=== PATIENT | male | born 1940 | race Caucasian/White ===

== ENCOUNTER 2022-09-02 10:00 | Inpatient (IN) | payer MEDICARE, BC ==
[~2022-09-02] VITALS: Ht 195.6 cm; Wt 127.0 kg
--- NOTE | 2022-09-02 10:24 | NUR ---
COVID SWAB COLLECTED AND SENT TO LAB
--- NOTE | 2022-09-02 10:45 | NUR ---
MOVE SHEET SUBMITTED.
--- NOTE | 2022-09-02 11:00 | NUR ---
PT IN BED A/O X4 ON NON REBREATHER 15L SATTING IN THE 92% RR 26. AUSCULTATION OF LUNG SOUNDS REVEALS RALES BILATERALLY, FEET ARE EDEMATOUS +3. CONNECTED TO BEDISDE MONITOR BP AND HR WNL. SIDE RAILS UP BED LOCKED IN LOWEST POSTION.
[2022-09-02] MEDS ORDERED: TAMS-12 PO (11:16)
[2022-09-02] MEDS ORDERED: METO5TAB7 PO (11:16)
[2022-09-02] MEDS ORDERED: CARV25TA2 PO (11:16)
[2022-09-02] MEDS ORDERED: LOSA50TA39 PO (11:16)
[2022-09-02] MEDS ORDERED: APIX2.5T PO (11:16)
[2022-09-02] MEDS ORDERED: DIGO125T PO (11:16)
[2022-09-02] MEDS ORDERED: EMPA10TA PO (11:16)
[2022-09-02] MEDS ORDERED: AMLO2.5T4 PO (11:16)
[2022-09-02] MEDS ORDERED: LINA5TAB PO (11:16)
[2022-09-02] MEDS ORDERED: PRAV20TA4 PO (11:16)
[2022-09-02] MEDS ORDERED: ALLO100T PO (11:16)
[2022-09-02] MEDS ORDERED: POTA-58 PO (11:16)
[2022-09-02] MEDS ORDERED: FAMO20TA8 PO (11:16)
[2022-09-02] MEDS ORDERED: FERR325T24 PO (11:16)
[2022-09-02] MEDS ORDERED: VENL37.591 PO (11:16)
[2022-09-02 11:34] LABS: BASOPHILS # (AUTO) 0.1 K/uL (0.0-0.2); EOSINOPHILS % (AUTO) 4.7 % (0.0-6.0); HEMATOCRIT 38 % (39-51); LYMPHOCYTES # (AUTO) 0.9 K/uL (0.8-4.8); LYMPHOCYTES % (AUTO) 13.8 % (20.0-44.0); MEAN CORPUSCULAR HGB CONC 32 g/dl (31.0-36.0); MEAN CORPUSCULAR VOLUME 90 fL (80-96); MONOCYTES # (AUTO) 0.9 K/uL (0.1-1.30); MONOCYTES % (AUTO) 13.5 % (2.0-12.0); NEUTROPHILS # (AUTO) 4.5 K/uL (1.8-8.9); PLATELET COUNT (AUTO) 201 K/uL (150-450); RED BLOOD CELL COUNT(AUTO) 4.15 MIL/uL (4.5-6.0); WHITE BLOOD COUNT (AUTO) 6.6 K/uL (4.3-11.0)
[2022-09-02] MEDS ORDERED: SENN-18 PO (11:40)
[2022-09-02] MEDS ORDERED: TEST75AU SQ (11:40)
[2022-09-02] MEDS ORDERED: ASPI-1169 PO (11:40)
[2022-09-02] MEDS ORDERED: BUME2TAB7 PO (11:40)
[2022-09-02] MEDS ORDERED: ASCO-352 PO (11:40)
[2022-09-02] MEDS ORDERED: MULT-24 PO (11:40)
[2022-09-02] MEDS ORDERED: CHOL100043 PO (11:40)
[2022-09-02] MEDS ORDERED: ZINC1CAP3 PO (11:40)
[2022-09-02 11:58] LABS: CALCIUM, SERUM 9.1 mg/dL (8.5-10.1); CARBON DIOXIDE 37 mmol/L (21-32); CHLORIDE 99 mmol/L (98-107); CREATININE 2.4 mg/dL (0.6-1.3); GLUCOSE 120 mg/dL (74-106); POTASSIUM 4.4 mmol/L (3.5-5.1); SODIUM SERUM 139 mmol/L (136-145); UREA NITROGEN, BLOOD 32 mg/dL (7-18)
[2022-09-02 12:10] LABS: ALANINE AMINOTRANSFERASE 11 U/L (12-78); ALBUMIN 2.6 g/dL (3.4-5.0); ALKALINE PHOSPHATASE 126 U/L (46-116); ASPARTATE AMINOTRANSFERASE 52 U/L (15-37); BILIRUBIN,DIRECT 0.2 mg/dL (0.0-0.2); BILIRUBIN,TOTAL 1.2 mg/dL (0.2-1.0); TOTAL PROTEIN, SERUM 8.4 g/dL (6.4-8.2)
[2022-09-02] MEDS ORDERED: FUROSEMIDE 40 MG/4 ML VIAL IV ONE (13:00)
[2022-09-02] MEDS ORDERED: FUROSEMIDE 40 MG/4 ML VIAL ONE (13:24)
--- NOTE | 2022-09-02 14:09 | NUR ---
PT TRANSITIONED TO SIMPLE MASK 10L POST LASIX ADMIN
--- NOTE | 2022-09-02 15:04 | NUR ---
URINE COLLECTED AND SENT TO LAB
--- NOTE | 2022-09-02 15:22 | NUR ---
CLIN APPLICATION SPECIALIST AT BEDSIDE FOR EVAL
[2022-09-02] MEDS ORDERED: Z GUARD REMEDY 4 OZ OINT TP PRN (15:30)
[2022-09-02] MEDS ORDERED: MAGNESIUM HYDROXIDE 30 ML UDC PO PRN (15:30)
[2022-09-02] MEDS ORDERED: ONDANSETRON HCL/PF 4 MG/2 ML VIAL IVP PRN (15:30)
[2022-09-02] MEDS ORDERED: MAG HYDROX/AL HYDROX/SIMETH 30 ML UDC PO PRN (15:30)
[2022-09-02] MEDS ORDERED: IPRATROPIUM NEB FS 0.5 MG/2.5 ML AMPUL.NEB NEB PRN (15:30)
[2022-09-02] MEDS ORDERED: ZOLPIDEM TARTRATE 5 MG TABLET PO PRN (15:30)
[2022-09-02] MEDS ORDERED: ALBUTEROL FS 2.5 MG/0.5 ML VIAL.NEB NEB PRN (15:30)
[2022-09-02] MEDS ORDERED: ACETAMINOPHEN 325 MG TABLET PO PRN (15:30)
[2022-09-02 15:39] LABS: BILIRUBIN,URINE NEGATIVE (NEGATIVE); COLOR,URINE YELLOW (YELLOW); LEUKOCYTE ESTERASE ,URINE NEGATIVE (NEGATIVE); NITRITE, URINE NEGATIVE (NEGATIVE); PH,URINE 5.5 (5.0-8.0); PROTEIN,URINE NEGATIVE (NEGATIVE); UGLUCOSE TRACE mg/dL (NEGATIVE); UROBILINOGEN,URINE 0.2 EU/dL (0.2)
[2022-09-02] MEDS ORDERED: DEXTROSE 50%-WATER 50 ML DISP.SYRIN IV PRN (16:00)
[2022-09-02] MEDS ORDERED: INSULIN REGULAR, HUMAN 100 UNIT/ML 3 ML VIAL SQ PRN (16:00)
--- NOTE | 2022-09-02 16:07 | NUR ---
hand off report given to Kisha
[2022-09-02 16:14] LABS: BACTERIA,URINE N0 /HPF (None Seen); RBC,URINE 0-2 /HPF (0-2); WBC,URINE 0-2 /HPF (0-3)
[2022-09-02 16:15] LABS: SQUAMOUS EPITHELIAL CELL,UR 0-2 /HPF (None Seen)
--- NOTE | 2022-09-02 16:24 | NUR ---
PT TRANSFERED W/ ACLS PROTOCALL. VITALS WERE STABLE THE WHOLE TIME.
[2022-09-02 16:30] VITALS: BP 89/46
--- NOTE | 2022-09-02 16:30 | NUR ---
FIELD EDUCATION DIRECTOR NOTE: PATIENT CAME FROM ER VIA STRETCHER. ALERT AND ORIENTED X4. ON 02 5LPM NC SATING AT 100%. NATURAL RESOURCES TECHNICIAN CONTROLLED A.FIB FIRST DEGREE BLOCK WITH FREQUENT PVC'S. HR 77. IN ON LEFT AND RIGHT FOREARM IV 20G. DENIES PAIN OR DISCOMFORT.
[2022-09-02] MEDS: CARVEDILOL 6.25 MG TABLET PO SCH (17:00)
[2022-09-02] MEDS ORDERED: POTASSIUM CHLORIDE 20 MEQ TAB.PRT.SR PO SCH (17:00)
[2022-09-02] MEDS: BLOOD SUGAR DIAGNOSTIC 1 EACH STRIP IN SCH ×2 (17:31→22:39)
--- NOTE | 2022-09-02 17:56 | NUR ---
RT ABG order discontinued per Ronald Hoskins NP
[2022-09-02] MEDS: AMLODIPINE BESYLATE 2.5 MG TABLET PO SCH (18:00)
[2022-09-02] MEDS: CHOLECALCIFEROL 1,000 UNIT TABLET (VIT D3) PO SCH (18:15)
[2022-09-02] MEDS: SENNOSIDES 8.6 MG TABLET PO SCH (18:16)
[2022-09-02] MEDS: FAMOTIDINE (20 MG) 20 MG TABLET PO SCH (18:16)
[2022-09-02] MEDS: FERROUS SULFATE (325 MG) 325 MG/TAB TABLET PO SCH (18:17)
[2022-09-02] MEDS: APIXABAN 2.5 MG TABLET PO SCH (18:17)
[2022-09-02 18:30] VITALS: BP 101/66
--- NOTE | 2022-09-02 18:32 | NUR ---
HEATHER MACHINE II TRIMMER INFORMED OF PATIENT BP 101/66 HR 82. HOLD COREG 25 MG 1700 DOSE AND NORVASC 2.5 MG 1800 DOSE FOR BP 101/66 HR 82 FOR 09/02/22.
--- NOTE | 2022-09-02 18:51 | NUR ---
RN CLOSING NOTE: ALERT AND ORIENTED X4. 02 5 LPM NC SATING AT 98 5. HOB ELEVATED. BILATERAL HALF SIDE RAILS UP X2. BED IS LOCKED IN LOW POSITION, EXIT ALARM ON. DENIES PAIN OR DISCOMFORT. ABLE TO CONSUME DINNER. BLOOD GLUCOSE CHECKED WITH NO S/S OF HYPO OR HYPERGLYCEMIA. KEPT CLEAN AND COMFORTABLE. CALL LIGHT IN REACH.
--- NOTE | 2022-09-02 21:17 | NUR ---
STATISTICAL TYPIST OPENING NOTES RECEIVED PATIENT IN BED, A/O X 4 ON MODERATE HIGH BACK REST POSITION. ABLE TO VERBALIZED NEEDS. HOOKED TO OXYGEN VIA NASAL CANNULA AT 5 LPM SATURATING AT 95%. ON CARDIAC DIET. ATTACHED TO TELE MONITORING DEVICE WITH EPISODES OF A-FIB. WITH IV ACCESS AT LFA #20G SL PATENT AND INTACT. KEPT BED ON LOWER LOCKED POSITION. KEPT SIDE RAILS UP X 2 ALL THE TIME. PATIENT IS ON BEDREST FOR NOW. KEPT CALL LIGHT WITHIN AT REACH. WILL CONTINUE TO MONITOR FOR JOHANNA.
[2022-09-02 22:00] VITALS: BP 93/60
[2022-09-03 01:14] VITALS: BP 93/60
[2022-09-03 04:00] VITALS: BP 130/70
[2022-09-03 05:59] LABS: BASOPHILS % (AUTO) 0.4 % (0.0-2.0); EOSINOPHILS % (AUTO) 4.8 % (0.0-6.0); HEMATOCRIT 37 % (39-51); HEMOGLOBIN 11.9 g/dL (13.5-17.5); LYMPHOCYTES # (AUTO) 0.9 K/uL (0.8-4.8); LYMPHOCYTES % (AUTO) 13.3 % (20.0-44.0); MEAN CORPUSCULAR HGB CONC 32 g/dl (31.0-36.0); MEAN CORPUSCULAR VOLUME 91 fL (80-96); MONOCYTES # (AUTO) 1.3 K/uL (0.1-1.30); MONOCYTES % (AUTO) 18.2 % (2.0-12.0); NEUTROPHILS # (AUTO) 4.4 K/uL (1.8-8.9); NEUTROPHILS % (AUTO) 63.3 % (43.0-81.0); PLATELET COUNT (AUTO) 191 K/uL (150-450); RED BLOOD CELL COUNT(AUTO) 4.07 MIL/uL (4.5-6.0)
[2022-09-03 06:09] LABS: CALCIUM, SERUM 9.1 mg/dL (8.5-10.1); CARBON DIOXIDE 39 mmol/L (21-32); CHLORIDE 98 mmol/L (98-107); CREATININE 2.4 mg/dL (0.6-1.3); GLUCOSE 124 mg/dL (74-106); MAGNESIUM 2.2 mg/dL (1.8-2.4); SODIUM SERUM 142 mmol/L (136-145); UREA NITROGEN, BLOOD 34 mg/dL (7-18)
[2022-09-03 06:30] LABS: PHOSPHORUS 4.5 mg/dL (2.5-4.9)
[2022-09-03 06:34] LABS: POTASSIUM 2.6 mmol/L (3.5-5.1)
--- NOTE | 2022-09-03 06:37 | NUR ---
SUBMARINE DIVER CLOSING NOTES RECEIVED PATIENT IN BED, A/O X 4 ON MODERATE HIGH BACK REST POSITION. ABLE TO VERBALIZED NEEDS. HOOKED TO OXYGEN VIA NASAL CANNULA AT 5 LPM SATURATING AT 95%. ON CARDIAC DIET. ATTACHED TO TELE MONITORING DEVICE WITH EPISODES OF A-FIB. WITH IV ACCESS AT LFA #20G SL PATENT AND INTACT. KEPT BED ON LOWER LOCKED POSITION.PM CARE RENDERED. ALL DUE MEDICATIONS GIVEN, ALL NEEDS ATTENDED. KEPT SIDE RAILS UP X 2 ALL THE TIME. PATIENT IS ON BEDREST FOR NOW. KEPT CALL LIGHT WITHIN AT REACH. WILL ENDORSED TO AM SHIFT FOR JOHANNA.
[2022-09-03] MEDS: BLOOD SUGAR DIAGNOSTIC 1 EACH STRIP IN SCH ×4 (06:38→21:35)
--- NOTE | 2022-09-03 06:42 | NUR ---
REFINERY OPERATOR NOTES RECEIVED CALL FROM LAB NOTED POTASSIUM OF 2.[address] WHITTINGTON INFORMED. WILL CONTINUE TO MONITOR
--- NOTE | 2022-09-03 07:15 | NUR ---
RN OPENING NOTE RECEIVED PATIENT IN BED, ASLEEP. OXYGEN VIA NASAL CANNULA AT 5 LPM SAT 95%. EXTERNAL GOLF SUPERINTENDENT SHOWS EPISODES OF A-FIB. IV ACCESS AT LFA #20G SL PATENT AND INTACT. BED ON LOWER LOCKED POSITION. SIDE RAILS UP X 2, CALL LIGHT WITHIN AT REACH. WILL CONTINUE TO MONITOR.
[2022-09-03 08:00] VITALS: BP 105/54
[2022-09-03] MEDS: POTASSIUM CHLORIDE 20 MEQ TAB.PRT.SR PO SCH ×5 (08:10→12:15)
[2022-09-03] MEDS: ASPIRIN 81 MG TAB.CHEW PO SCH (08:10)
[2022-09-03] MEDS: APIXABAN 2.5 MG TABLET PO SCH ×2 (08:17→17:01)
[2022-09-03] MEDS: ZINC SULFATE 220 MG CAPSULE PO SCH (08:18)
[2022-09-03] MEDS: LINAGLIPTIN 5 MG TABLET PO SCH (08:18)
[2022-09-03] MEDS: VENLAFAXINE XR 37.5 MG CAP.SR.24H PO SCH (08:18)
[2022-09-03] MEDS: MULTIVITAMINS,THERAGRAN 1 UDTAB TABLET PO SCH (08:18)
[2022-09-03] MEDS: ALLOPURINOL 100 MG TABLET PO SCH (08:18)
[2022-09-03] MEDS: METOLAZONE 2.5 MG TABLET PO SCH (08:18)
[2022-09-03] MEDS: FERROUS SULFATE (325 MG) 325 MG/TAB TABLET PO SCH ×2 (08:18→16:56)
[2022-09-03] MEDS: ATORVASTATIN 10 MG TABLET PO SCH (08:19)
[2022-09-03] MEDS: CARVEDILOL 6.25 MG TABLET PO SCH ×3 (08:20→17:00)
[2022-09-03] MEDS: TAMSULOSIN 0.4 MG CAP.SR.24H PO SCH (08:21)
[2022-09-03] MEDS: ASCORBIC ACID 500 MG TABLET PO SCH (08:22)
[2022-09-03] MEDS: DIGOXIN 0.125 MG TABLET PO SCH (08:22)
[2022-09-03] MEDS ORDERED: FUROSEMIDE 40 MG/4 ML VIAL IV SCH (09:00)
[2022-09-03 10:02] LABS: THYROID STIMULATING HORMONE 1.437 uIU/mL (0.358-3.74)
[2022-09-03 12:00] VITALS: BP 106/64
[2022-09-03 16:00] VITALS: BP 115/70
[2022-09-03] MEDS: CHOLECALCIFEROL 1,000 UNIT TABLET (VIT D3) PO SCH (16:57)
[2022-09-03] MEDS: LEVOFLOXACIN 250 MG /D5W 50 ML 250 MG in PREMIX 1 EA IV SCH (17:02)
[2022-09-03] MEDS: AMLODIPINE BESYLATE 2.5 MG TABLET PO SCH (17:06)
[2022-09-03] MEDS: FAMOTIDINE (20 MG) 20 MG TABLET PO SCH (17:08)
[2022-09-03] MEDS: SENNOSIDES 8.6 MG TABLET PO SCH (17:08)
--- NOTE | 2022-09-03 19:19 | NUR ---
RN CLOSING NOTE PATIENT IN BED, A/O X 4 ON MODERATE HIGH BACK REST POSITION. ABLE TO VERBALIZED NEEDS. OXYGEN VIA NASAL CANNULA AT 5 LPM SATURATING AT 96%. IV ACCESS AT LFA #20G SL PATENT AND INTACT. KEPT BED ON LOWER LOCKED POSITION.PM CARE RENDERED. PT HAD CHEST XRAY, ECHOCARDIOGRAM AND CT SCAN DONE TODAY. ALL DUE MEDICATIONS GIVEN, ALL NEEDS ATTENDED. KEPT SIDE RAILS UP X 2 ALL THE TIME. PATIENT IS ON BEDREST FOR NOW. KEPT CALL LIGHT WITHIN AT REACH. WILL ENDORSED TO NEXT SHIFT FOR JOHANNA.
[2022-09-03 20:00] VITALS: BP 114/65
--- NOTE | 2022-09-03 21:00 | NUR ---
RAPID INFLUENZA Specimen collected, nasal swab for Rapid influenza test, send to lab.
--- NOTE | 2022-09-03 21:35 | NUR ---
ACCU CHECK Bld glucose 177mg/dl Given insulin per Insulin parameters, co-signed by NII ERAZO.
[2022-09-04] VITALS: BP 116/65
[2022-09-04 04:00] VITALS: BP 120/59
--- NOTE | 2022-09-04 05:37 | NUR ---
END OF SHIFT REPORT Patient in bed, Alert Oriented x4. Oxygen sat high 90's in 5L NC. Sinus rhythm with PVC's in the Tele monitor. HR 87. Denies chest pain. IV RFA intact. On IV abx Afebrile during the night. Rapid influenza resulted not detected. Echo pending result. BLE blanchable redness, right lower leg blister filled fluid. Consult for wound care placed. Patient had BM during the night, incontinent care done. Turned and repositioned, off load heels at all times. Plan for con Abx. Will endorse to oncoming RN.
--- NOTE | 2022-09-04 07:05 | NUR ---
RN OPENING NOTE RECEIVED PATIENT IN BED, ASLEEP. OXYGEN VIA NASAL CANNULA AT 5 LPM SAT 96%. IV ACCESS AT LFA #20G SL, PATENT AND INTACT. BED ON LOWER LOCKED POSITION, HOB ELEVATED, SIDE RAILS UP X 2, CALL LIGHT WITHIN AT REACH. WILL CONTINUE TO MONITOR.
[2022-09-04 07:08] LABS: BASOPHILS % (AUTO) 0.6 % (0.0-2.0); EOSINOPHILS % (AUTO) 4.1 % (0.0-6.0); HEMATOCRIT 37 % (39-51); LYMPHOCYTES # (AUTO) 0.9 K/uL (0.8-4.8); LYMPHOCYTES % (AUTO) 12.4 % (20.0-44.0); MEAN CORPUSCULAR HGB CONC 32 g/dl (31.0-36.0); MEAN CORPUSCULAR VOLUME 90 fL (80-96); MONOCYTES # (AUTO) 1.1 K/uL (0.1-1.30); MONOCYTES % (AUTO) 15.1 % (2.0-12.0); NEUTROPHILS # (AUTO) 5.1 K/uL (1.8-8.9); NEUTROPHILS % (AUTO) 67.8 % (43.0-81.0); PLATELET COUNT (AUTO) 210 K/uL (150-450); RED BLOOD CELL COUNT(AUTO) 4.16 MIL/uL (4.5-6.0); WHITE BLOOD COUNT (AUTO) 7.5 K/uL (4.3-11.0)
[2022-09-04] MEDS: BLOOD SUGAR DIAGNOSTIC 1 EACH STRIP IN SCH ×4 (07:21→22:00)
[2022-09-04 07:24] LABS: ALANINE AMINOTRANSFERASE 8 U/L (12-78); ALBUMIN 2.8 g/dL (3.4-5.0); ALKALINE PHOSPHATASE 120 U/L (46-116); ASPARTATE AMINOTRANSFERASE 15 U/L (15-37); BILIRUBIN,TOTAL 1.4 mg/dL (0.2-1.0); CALCIUM, SERUM 8.9 mg/dL (8.5-10.1); CHLORIDE 100 mmol/L (98-107); CREATININE 2.3 mg/dL (0.6-1.3); GLUCOSE 112 mg/dL (74-106); PHOSPHORUS 3.5 mg/dL (2.5-4.9); SODIUM SERUM 143 mmol/L (136-145); TOTAL PROTEIN, SERUM 7.5 g/dL (6.4-8.2); UREA NITROGEN, BLOOD 32 mg/dL (7-18)
--- NOTE | 2022-09-04 07:45 | NUR ---
GOT A CALL FROM LAB RE: CRITICAL VALUE OF POTASSIUM 2.8. DR STORM ON HIS ROUND AT A PATIEN'S ROOM, NOTIFIED.
[2022-09-04 07:47] LABS: CARBON DIOXIDE 40 mmol/L (21-32); POTASSIUM 2.8 mmol/L (3.5-5.1)
[2022-09-04 08:00] VITALS: BP 113/69
[2022-09-04] MEDS: TAMSULOSIN 0.4 MG CAP.SR.24H PO SCH (08:02)
[2022-09-04] MEDS: FERROUS SULFATE (325 MG) 325 MG/TAB TABLET PO SCH ×2 (08:03→16:01)
[2022-09-04] MEDS: LINAGLIPTIN 5 MG TABLET PO SCH (08:03)
[2022-09-04] MEDS: MULTIVITAMINS,THERAGRAN 1 UDTAB TABLET PO SCH (08:03)
[2022-09-04] MEDS: VENLAFAXINE XR 37.5 MG CAP.SR.24H PO SCH (08:04)
[2022-09-04] MEDS: ASPIRIN 81 MG TAB.CHEW PO SCH (08:04)
[2022-09-04] MEDS: DIGOXIN 0.125 MG TABLET PO SCH (08:05)
[2022-09-04] MEDS: ZINC SULFATE 220 MG CAPSULE PO SCH (08:06)
[2022-09-04] MEDS: ATORVASTATIN 10 MG TABLET PO SCH (08:06)
[2022-09-04] MEDS: ALLOPURINOL 100 MG TABLET PO SCH (08:06)
[2022-09-04] MEDS: ASCORBIC ACID 500 MG TABLET PO SCH (08:07)
[2022-09-04] MEDS: METOLAZONE 2.5 MG TABLET PO SCH (08:08)
[2022-09-04] MEDS: CARVEDILOL 6.25 MG TABLET PO SCH ×2 (08:09→16:04)
[2022-09-04] MEDS: APIXABAN 2.5 MG TABLET PO SCH ×2 (08:18→16:04)
[2022-09-04] MEDS ORDERED: POTASSIUM CHLORIDE 20 MEQ TAB.PRT.SR PO SCH (11:00)
[2022-09-04 11:51] LABS: BAND % (MANUAL) 5 % (0.0-5.0); EOSINOPHILS % (MANUAL) 6 % (0-4); LYMPHOCYTES % (MANUAL) 7 % (16-48); MONOCYTES % (MANUAL) 14 % (0-11.0); NEUTROPHILS % (MANUAL) 68 (42-76)
--- NOTE | 2022-09-04 11:52 | NUR ---
WOUND CARE CONSULT: PT PRESENTS INDEPENDENT WITH BED MOBILITY AND CONTINENT WITH EDEMA TO LOWER LEGS AND INTACT BLISTER TO RT LOWER LEG, PRESENT ON ADMISSION. DR SULTANA CALLED FOR DPM CONSULT. IN AGREEMENT WITH PLAN OF CARE.
[2022-09-04 12:00] VITALS: BP 102/52
[2022-09-04] MEDS: LEVOFLOXACIN 250 MG /D5W 50 ML 250 MG in PREMIX 1 EA IV SCH (15:59)
[2022-09-04 16:00] VITALS: BP 133/96
[2022-09-04] MEDS: CHOLECALCIFEROL 1,000 UNIT TABLET (VIT D3) PO SCH (16:01)
[2022-09-04] MEDS: predniSONE 20 MG TABLET PO SCH (16:49)
[2022-09-04] MEDS ORDERED: LINAGLIPTIN 5 MG TABLET PO SCH (17:00)
[2022-09-04] MEDS: FAMOTIDINE (20 MG) 20 MG TABLET PO SCH (17:21)
[2022-09-04] MEDS: AMLODIPINE BESYLATE 2.5 MG TABLET PO SCH (17:21)
[2022-09-04] MEDS: SENNOSIDES 8.6 MG TABLET PO SCH (17:21)
--- NOTE | 2022-09-04 18:56 | NUR ---
RN CLOSING NOTE PATIENT IN BED, SITTING, AWAKE, ALERT, OXYGEN VIA NASAL CANNULA AT 5 LPM SAT 96%. IV ACCESS AT LFA #20G SL, PATENT AND INTACT. PT HAD EPISODE OF BLOOD IN BOWEL MOVEMENT, CONTACTED DR GOODMAN, ORDER TO D/C TRACE. BED ON LOWER LOCKED POSITION, HOB ELEVATED, SIDE RAILS UP X 2, CALL LIGHT WITHIN AT REACH. WILL ENDORSE TO THE CONSTRUCTION OR LEAK GANG LABORER FOR JOHANNA.
--- NOTE | 2022-09-04 19:30 | NUR ---
MACHINIST LINOTYPE OPENING NOTE RECEIVED THE CHANGE SHIFT REPORT FROM THE DAY SHIFT NURSE. PT IS IN BED, AWAKE, ALERT AND ORIENTED. AO X 4. PT IS ON 5 LPM OXYGEN VIA NC, TOLERATED WELL. NO S/S OF DISTRESS OR SOB. PT HAS IV ACCESS AT HIS R FA, #20G, SL. FLUSHED WITH 10 CC OF NS, IV SITE IS PATENT AND INTACT. 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 SAFETY MEASURES ARE IN PLACED: BED IN LOWEST AND LOCKED POSITION; SIDE RAILS UP X 2; BED ALARM IS SET. CALL LIGHT AND TABLE ARE WITHIN REACH. WILL CONTINUE MONITORING THE PATIENT AND PROVIDE THE CARE PT NEEDS.
[2022-09-04 20:00] VITALS: BP 121/70
--- NOTE | 2022-09-04 22:50 | NUR ---
WALL INSULATION SPRAYER NOTE PT REFUSED THE BLOOD SUGAR /ACCU CHECK DUE AT HS. PT STATED "MY BLOOD SUGAR HAS BEEN FINE. I DON'T NEED TO BE CHECKED".
[2022-09-05] VITALS: BP 127/77
[2022-09-05 04:00] VITALS: BP 133/71
--- NOTE | 2022-09-05 06:48 | NUR ---
MEDIA MARKETING MANAGER CLOSING NOTE PATIENT IS AWAKE, SITTING IN BED WATCHING TV.HE IS AWAKE, ALERT AND ORIENTED. AO X 4. PT IS ON 5 LPM OXYGEN VIA NC, TOLERATED WELL. NO S/S OF DISTRESS OR SOB. PT HAS IV ACCESS AT HIS R FA, #20G, SL. FLUSHED WITH 10 CC OF NS, IV SITE IS PATENT AND INTACT. 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 PT HAS 2 TIMES OF LOOSE BM DURING THE SHIFT. THE 2ND BM @0640 THIS MORNING HAS MEDIUM AMOUNT OF FRESH BLOOD. CHARGE NURSE, RACHNA, NOTIFIED. YESTERDAY, PT HAS ONE EPISODE OF STOOL HAS BLOOD IN WELL. DR. GOODMAN WAS NOTIFIED BY DAY SHIFT YESTERDAY. DURING THE SHIFT, PT REFUSED THE HS BLOOD SUGAR CHECK. SAFETY MEASURES ARE IN PLACED: BED IN LOWEST AND LOCKED POSITION; SIDE RAILS UP X 2; BED ALARM IS SET. CALL LIGHT AND TABLE ARE WITHIN REACH. WILL ENDORSE NEXT SHIFT NURSE FOR CONTINUING PT CARE.
[2022-09-05 07:22] LABS: BASOPHILS % (AUTO) 0.2 % (0.0-2.0); HEMATOCRIT 37 % (39-51); HEMOGLOBIN 12.2 g/dL (13.5-17.5); LYMPHOCYTES # (AUTO) 0.6 K/uL (0.8-4.8); LYMPHOCYTES % (AUTO) 7.5 % (20.0-44.0); MEAN CORPUSCULAR HGB CONC 33 g/dl (31.0-36.0); MEAN CORPUSCULAR VOLUME 89 fL (80-96); MONOCYTES # (AUTO) 0.5 K/uL (0.1-1.30); MONOCYTES % (AUTO) 6.2 % (2.0-12.0); NEUTROPHILS # (AUTO) 7.2 K/uL (1.8-8.9); NEUTROPHILS % (AUTO) 86.1 % (43.0-81.0); PLATELET COUNT (AUTO) 205 K/uL (150-450); RED BLOOD CELL COUNT(AUTO) 4.19 MIL/uL (4.5-6.0); WHITE BLOOD COUNT (AUTO) 8.4 K/uL (4.3-11.0)
[2022-09-05] MEDS: BLOOD SUGAR DIAGNOSTIC 1 EACH STRIP IN SCH ×4 (07:30→22:00)
[2022-09-05 07:37] LABS: CALCIUM, SERUM 9.4 mg/dL (8.5-10.1); CARBON DIOXIDE 37 mmol/L (21-32); CHLORIDE 98 mmol/L (98-107); CREATININE 2.2 mg/dL (0.6-1.3); GLUCOSE 148 mg/dL (74-106); POTASSIUM 3.4 mmol/L (3.5-5.1); SODIUM SERUM 139 mmol/L (136-145); UREA NITROGEN, BLOOD 34 mg/dL (7-18)
[2022-09-05 08:00] VITALS: BP 128/90
--- NOTE | 2022-09-05 08:15 | NUR ---
PATIENT REFUSED THE BLOOD GLUCOSE CHECK
[2022-09-05] MEDS: METOLAZONE 2.5 MG TABLET PO SCH (09:12)
[2022-09-05] MEDS: DIGOXIN 0.125 MG TABLET PO SCH (09:13)
[2022-09-05] MEDS: ATORVASTATIN 10 MG TABLET PO SCH (09:13)
[2022-09-05] MEDS: ZINC SULFATE 220 MG CAPSULE PO SCH (09:14)
[2022-09-05] MEDS: CARVEDILOL 6.25 MG TABLET PO SCH ×2 (09:14→17:07)
[2022-09-05] MEDS: VENLAFAXINE XR 37.5 MG CAP.SR.24H PO SCH (09:14)
[2022-09-05] MEDS: TAMSULOSIN 0.4 MG CAP.SR.24H PO SCH (09:14)
[2022-09-05] MEDS: MULTIVITAMINS,THERAGRAN 1 UDTAB TABLET PO SCH (09:14)
[2022-09-05] MEDS: predniSONE 20 MG TABLET PO SCH (09:14)
[2022-09-05] MEDS: FERROUS SULFATE (325 MG) 325 MG/TAB TABLET PO SCH ×2 (09:15→17:07)
[2022-09-05] MEDS: ASCORBIC ACID 500 MG TABLET PO SCH (09:15)
[2022-09-05] MEDS: ASPIRIN 81 MG TAB.CHEW PO SCH (09:15)
[2022-09-05] MEDS: HOME MED MISC JARDIANCE 10MG PO SCH (09:21)
[2022-09-05] MEDS: ALLOPURINOL 100 MG TABLET PO SCH (09:21)
[2022-09-05] MEDS ORDERED: POTASSIUM CHLORIDE 10 MEQ TABLET.SA PO ONE (10:00)
[2022-09-05 11:54] LABS: MAGNESIUM 2.3 mg/dL (1.8-2.4); PHOSPHORUS 3.4 mg/dL (2.5-4.9)
[2022-09-05 12:00] VITALS: BP 110/59
--- NOTE | 2022-09-05 12:44 | NUR ---
PATIENT REFUSED THE ACCU CHECK AGAIN FOR 1200 O'CLOCK
[2022-09-05 16:00] VITALS: BP 108/65
--- NOTE | 2022-09-05 17:00 | NUR ---
DR. SHAH GI DOCTOR CALLED REGARDING PATIENT'S BLEEDING FROM [facility], HE SPOKE WITH PATIENT AND STATED THAT WE WILL MONITOR THE BLEEDING.
[2022-09-05] MEDS: LEVOFLOXACIN 250 MG /D5W 50 ML 250 MG in PREMIX 1 EA IV SCH (17:05)
[2022-09-05] MEDS: SENNOSIDES 8.6 MG TABLET PO SCH (17:06)
[2022-09-05] MEDS: FAMOTIDINE (20 MG) 20 MG TABLET PO SCH (17:07)
[2022-09-05] MEDS: CHOLECALCIFEROL 1,000 UNIT TABLET (VIT D3) PO SCH (17:10)
[2022-09-05] MEDS ORDERED: AMLODIPINE BESYLATE 2.5 MG TABLET PO SCH (18:00)
--- NOTE | 2022-09-05 19:18 | NUR ---
RN CLOSING NOTE PATIENT IS AWAKE, SITTING IN BED WATCHING TV.HE IS AWAKE, ALERT AND ORIENTED. AO X 4. PT IS ON 3 L OXYGEN VIA NC, TOLERATED WELL. NO S/S OF DISTRESS OR SOB. PT HAS IV ACCESS AT HIS R FA, #20G, SL. FLUSHED AND INTACT,PT HAS EXTERNAL SETTER HELPER ON HIM, ON THE MONITOR, DURING THE SHIFT, PT REFUSED THE HS BLOOD SUGAR CHECK. SAFETY MEASURES ARE IN PLACED: BED IN LOWEST AND LOCKED POSITION; SIDE RAILS UP X 2; BED ALARM IS SET. CALL LIGHT AND TABLE ARE WITHIN REACH. WILL ENDORSE PM NURSE FOR CONTINUING OF CARE.
--- NOTE | 2022-09-05 19:40 | NUR ---
EMERGENCY RESPONSE OFFICER OPENING NOTE PATIENT AWAKE IN BED, ALERT/ORIENTED X 4, PT ABLE TO MAKE NEEDS KNOWN. PATIENT STABLE ON 3 LPM OF O2 VIA NASAL CANNULA, NO S/S OF DISTRESS OR SOB NOTED, BREATHING EVEN AND UNLABORED. PATIENT ON EXTERNAL PRODUCT DEVELOPMENT ACTUARY READING SINUS RHYTHM WITH PVC'S, HR: 93. IV ACCESS ON RFA #20G INTACT AND INFUSING LEVAQUIN @ 50 ML/HR. SAFETY MEASURES IN PLACE: CALL LIGHT WITHIN REACH, SIDE RAILS UP X 2, BED LOCKED IN LOWEST POSITION, HOB ELEVATED, BED ALARM ON. WILL CONTINUE TO MONITOR PATIENT
[2022-09-05 20:00] VITALS: BP 117/73
--- NOTE | 2022-09-05 22:28 | NUR ---
BROOMMAKING SUPERVISOR NOTE PATIENT WITH 1 EPISODE OF DIARRHEA, STATES IT USUALLY HAPPENS WHEN HE'S HOSPITALIZED AND ON ANTIBIOTICS. CONTACTED ADMITTING CLERK MILTON MACK WITH ORDER FOR CULTERELLE 1 CAP BID. ORDER CONFIRMED
[2022-09-06] VITALS: BP 121/77
--- NOTE | 2022-09-06 00:13 | NUR ---
SQUARING MACHINE OPERATOR NOTE PATIENT NOTED WITH SMALL TO MODERATE AMOUNT OF RECTAL BLEEDING IN STOOL. MD AWARE. WILL CONTINUE TO MONITOR
[2022-09-06 04:00] VITALS: BP 120/70
[2022-09-06] MEDS: BLOOD SUGAR DIAGNOSTIC 1 EACH STRIP IN SCH ×2 (06:48→12:00)
[2022-09-06 06:51] LABS: BASOPHILS % (AUTO) 0.1 % (0.0-2.0); EOSINOPHILS % (AUTO) 0.2 % (0.0-6.0); HEMATOCRIT 39 % (39-51); HEMOGLOBIN 12.5 g/dL (13.5-17.5); LYMPHOCYTES # (AUTO) 0.6 K/uL (0.8-4.8); LYMPHOCYTES % (AUTO) 4.7 % (20.0-44.0); MEAN CORPUSCULAR HGB CONC 32 g/dl (31.0-36.0); MEAN CORPUSCULAR VOLUME 89 fL (80-96); MONOCYTES # (AUTO) 0.9 K/uL (0.1-1.30); MONOCYTES % (AUTO) 7.4 % (2.0-12.0); NEUTROPHILS % (AUTO) 87.6 % (43.0-81.0); PLATELET COUNT (AUTO) 215 K/uL (150-450); RED BLOOD CELL COUNT(AUTO) 4.38 MIL/uL (4.5-6.0); WHITE BLOOD COUNT (AUTO) 12.6 K/uL (4.3-11.0)
--- NOTE | 2022-09-06 06:55 | NUR ---
SETTER AUTOMATIC SPINNING LATHE CLOSING NOTE PATIENT SLEEPING IN BED, ALERT/ORIENTED X 4, PT ABLE TO MAKE NEEDS KNOWN. PATIENT STABLE ON 3 LPM OF O2 VIA NASAL CANNULA, NO S/S OF DISTRESS OR SOB NOTED, BREATHING EVEN AND UNLABORED. PATIENT ON EXTERNAL OCCUPATIONAL THERAPIST ASSISTANT READING SINUS RHYTHM WITH PVC'S, HR: 81. IV ACCESS ON RFA #20G INTACT AND SALINE LOCKED. MEDICATIONS GIVEN ORDERED, PT NEEDS MET THROUGHOUT SHIFT, PATIENT HAD 3 EPISODES OF DIARRHEA, 2 OF WHICH HAD A SMALL TO MODERATE AMOUNT OF BLOOD WITH MUCUS. SAFETY MEASURES IN PLACE: CALL LIGHT WITHIN REACH, SIDE RAILS UP X 2, BED LOCKED IN LOWEST POSITION, HOB ELEVATED, BED ALARM ON. WILL ENDORSE TO DAYSHIFT RN FOR CONTINUITY OF CARE
[2022-09-06 07:31] LABS: CALCIUM, SERUM 9.3 mg/dL (8.5-10.1); CARBON DIOXIDE 39 mmol/L (21-32); CHLORIDE 98 mmol/L (98-107); CREATININE 1.9 mg/dL (0.6-1.3); GLUCOSE 118 mg/dL (74-106); MAGNESIUM 2.3 mg/dL (1.8-2.4); SODIUM SERUM 140 mmol/L (136-145); UREA NITROGEN, BLOOD 33 mg/dL (7-18)
[2022-09-06 08:00] VITALS: BP 126/78
[2022-09-06] MEDS: predniSONE 20 MG TABLET PO SCH (08:45)
[2022-09-06] MEDS: METOLAZONE 2.5 MG TABLET PO SCH (08:45)
[2022-09-06] MEDS: VENLAFAXINE XR 37.5 MG CAP.SR.24H PO SCH (08:45)
[2022-09-06] MEDS: LACTOBACILLUS RHAMNOSUS GG 1 EACH CAP.SPRINK PO SCH ×2 (08:45→16:34)
[2022-09-06] MEDS: ZINC SULFATE 220 MG CAPSULE PO SCH (08:45)
[2022-09-06] MEDS: ALLOPURINOL 100 MG TABLET PO SCH (08:45)
[2022-09-06] MEDS: TAMSULOSIN 0.4 MG CAP.SR.24H PO SCH (08:45)
[2022-09-06] MEDS: FERROUS SULFATE (325 MG) 325 MG/TAB TABLET PO SCH ×2 (08:45→16:35)
[2022-09-06] MEDS: ASPIRIN 81 MG TAB.CHEW PO SCH (08:45)
[2022-09-06] MEDS: ATORVASTATIN 10 MG TABLET PO SCH (08:46)
[2022-09-06] MEDS: MULTIVITAMINS,THERAGRAN 1 UDTAB TABLET PO SCH (08:46)
[2022-09-06] MEDS: ASCORBIC ACID 500 MG TABLET PO SCH (08:46)
[2022-09-06] MEDS: DIGOXIN 0.125 MG TABLET PO SCH (08:48)
[2022-09-06] MEDS: CARVEDILOL 6.25 MG TABLET PO SCH ×2 (08:48→16:34)
[2022-09-06] MEDS: HOME MED MISC JARDIANCE 10MG PO SCH (08:49)
[2022-09-06 12:00] VITALS: BP 114/77
[2022-09-06 12:52] LABS: ABG BASE EXCESS 12.2 mmol/L; ABG PCO2 54.3 mmHg (35.0-45.0); ABG PH 7.464 (7.350-7.450); ABG PO2 47.8 mmHg (75.0-100.0); AaDO2 36.9 mmHg; MetHb 0.1 % (0.0-1.5); O2Hb 83.1 % (94.0-97.0); SITE, ABG Right Radial; VENT MODE, BG ROOM AIR
[2022-09-06] MEDS ORDERED: POTASSIUM CHLORIDE 20 MEQ TAB.PRT.SR PO SCH (13:00)
[2022-09-06] MEDS ORDERED: AMLO2.5T4 PO (13:46)
[2022-09-06] MEDS ORDERED: LEVO500T90 PO (13:46)
[2022-09-06] MEDS ORDERED: PRED20TA PO (13:46)
[2022-09-06 16:00] VITALS: BP 127/86
[2022-09-06 16:34] VITALS: BP 127/86
[2022-09-06] MEDS: CHOLECALCIFEROL 1,000 UNIT TABLET (VIT D3) PO SCH (16:34)
[2022-09-06] MEDS ORDERED: LEVOFLOXACIN 750 MG /D5W 150ML 750 MG in PREMIX 1 EA IV SCH (17:00)
--- NOTE | 2022-09-06 17:00 | NUR ---
PATIENT DISCHARGE PATIENT DISCHARGES TO HOME, HIS SON SAVANNAH CAME AND PICKED HIM UP FROM [facility]. PATIENT WILL HAVE OXYGEN AT HOME BY HIS OWN HOME HEALTH AGENC[facility]. ALL NEW MEDICATION LIST PROVIDED TO PATIENT, ALL DISCHARGE INSTRUCTIONS GIVEN TO PATIENT, ALL BELONGINGS GIVEN AND THE FORMED SIGNED AN PLACED IN PATIENT'S CHART. PATIENT TAKEN TO [facility] BY THE WHEELCHAIR, PATIENT WAS AMB WITH ASSIST.
== END 2022-09-06 17:23 | DRG 291 ==
LOC: ER 10:00 → TELE1 16:01
PROVIDERS: ADMIT Nurse Practitioner Acute Care; ATTEND Student in an Organized Health Care Education/Training Program
DX: I13.0 Hypertensive heart and chronic kidney disease with heart failure and stage 1 through stage 4 chronic kidney disease, or unspecified chronic kidney disease (principal); E43 Unspecified severe protein-calorie malnutrition; N17.0 Acute kidney failure with tubular necrosis; J96.01 Acute respiratory failure with hypoxia; J18.9 Pneumonia, unspecified organism; I50.23 Acute on chronic systolic (congestive) heart failure; K62.5 Hemorrhage of anus and rectum; N40.0 Benign prostatic hyperplasia without lower urinary tract symptoms; E11.22 Type 2 diabetes mellitus with diabetic chronic kidney disease; D63.1 Anemia in chronic kidney disease; N18.9 Chronic kidney disease, unspecified; E66.01 Morbid (severe) obesity due to excess calories; E78.5 Hyperlipidemia, unspecified; E88.09 Other disorders of plasma-protein metabolism, not elsewhere classified; F32.A Depression, unspecified; I48.0 Paroxysmal atrial fibrillation; E87.6 Hypokalemia; N28.1 Cyst of kidney, acquired; S80.821A Blister (nonthermal), right lower leg, initial encounter; X58.XXXA Exposure to other specified factors, initial encounter; Y93.9 Activity, unspecified; Y92.89 Other specified places as the place of occurrence of the external cause; Z68.34 Body mass index [BMI] 34.0-34.9, adult; Z79.01 Long term (current) use of anticoagulants; Z79.82 Long term (current) use of aspirin; Z79.84 Long term (current) use of oral hypoglycemic drugs; Z79.899 Other long term (current) drug therapy; G47.30 Sleep apnea, unspecified; Z20.822 Contact with and (suspected) exposure to COVID-19
CPT/HCPCS: 36415; 36600; 71045-TC; 71250-TC; 76770-TC; 80048-TC; 80053-TC; 80061-TC; 80076-TC; 80162-TC; 81001; 82728-TC; 82962-TC; 83540-TC; 83735-TC; 83880; 84100-TC; 84439-TC; 84443-TC; 84484-TC; 85025-TC; 87081-TC; 93307-TC; 93970-TC; 97116-TC; 97530-TC; A4216; A4223; C9803; G0378; J1815; J1940; J1956; J7050; J7060

== ENCOUNTER 2022-09-21 20:23 | Inpatient (IN) | payer MEDICARE, BC ==
[~2022-09-21] VITALS: Ht 195.6 cm; Wt 124.3 kg
[2022-09-21 20:00] VITALS: BP 111/43
[~2022-09-21 20:23] MED LIST: ALLO100T PO; AMLO2.5T4 PO; APIX2.5T PO; ASCO-352 PO; ASPI-1169 PO; BUME2TAB7 PO; CARV25TA2 PO; CHOL100043 PO; DIGO125T PO; EMPA10TA PO; FAMO20TA8 PO; FERR325T24 PO; LEVO500T90 PO; LINA5TAB PO; LOSA50TA39 PO; METO5TAB7 PO; MULT-24 PO; POTA-58 PO; PRAV20TA4 PO; PRED20TA PO; SENN-18 PO; TAMS-12 PO; TEST75AU SQ; VENL37.591 PO; ZINC1CAP3 PO
--- NOTE | 2022-09-21 20:43 | NUR ---
PT PLACED COMFORTABLY IN BED, VITALS CHECKED. PT IS AAOX4, IN NAD.
--- NOTE | 2022-09-21 20:43 | NUR ---
[facility] C/O GEN WEAKNESS FOR COUPLE DAYS. FOUND SITTING ON FLOOR W/ FECES FOR A FEW HOURS, COULDN'T GET UP.
--- NOTE | 2022-09-21 20:54 | NUR ---
EKG COMPLETED AT BEDSIDE
--- NOTE | 2022-09-21 20:59 | NUR ---
track maintainer at pt's bedside
[2022-09-21 21:14] LABS: CALCIUM, SERUM 8.8 mg/dL (8.5-10.1); CARBON DIOXIDE 39 mmol/L (21-32); CHLORIDE 97 mmol/L (98-107); CREATININE 2.4 mg/dL (0.6-1.3); GLUCOSE 206 mg/dL (74-106); POTASSIUM 3.5 mmol/L (3.5-5.1); SODIUM SERUM 138 mmol/L (136-145); UREA NITROGEN, BLOOD 46 mg/dL (7-18)
--- NOTE | 2022-09-21 21:15 | NUR ---
XR AT BEDSIDE
[2022-09-21 21:26] LABS: BASOPHILS % (AUTO) 0.2 % (0.0-2.0); EOSINOPHILS % (AUTO) 2.4 % (0.0-6.0); HEMATOCRIT 45 % (39-51); HEMOGLOBIN 14.2 g/dL (13.5-17.5); LYMPHOCYTES # (AUTO) 0.8 K/uL (0.8-4.8); LYMPHOCYTES % (AUTO) 5.4 % (20.0-44.0); MAGNESIUM 2.2 mg/dL (1.8-2.4); MEAN CORPUSCULAR HGB CONC 32 g/dl (31.0-36.0); MEAN CORPUSCULAR VOLUME 89 fL (80-96); MONOCYTES # (AUTO) 1.1 K/uL (0.1-1.30); MONOCYTES % (AUTO) 7.8 % (2.0-12.0); NEUTROPHILS # (AUTO) 12.4 K/uL (1.8-8.9); NEUTROPHILS % (AUTO) 84.2 % (43.0-81.0); PLATELET COUNT (AUTO) 201 K/uL (150-450); RED BLOOD CELL COUNT(AUTO) 5.05 MIL/uL (4.5-6.0); WHITE BLOOD COUNT (AUTO) 14.7 K/uL (4.3-11.0)
--- NOTE | 2022-09-21 21:55 | NUR ---
MRSA SWAB COLLECTED AND SENT TO LAB
--- NOTE | 2022-09-21 21:55 | NUR ---
COVID SWAB COLLECTED AND SENT TO LAB
[2022-09-21] MEDS ORDERED: FUROSEMIDE 40 MG/4 ML VIAL IV ONE (22:00)
[2022-09-21] MEDS ORDERED: FUROSEMIDE 40 MG/4 ML VIAL ONE (22:09)
--- NOTE | 2022-09-21 22:25 | NUR ---
20GA TO RFA ESTABLISHED
--- NOTE | 2022-09-21 22:25 | NUR ---
SON/KRISTI OAKLEY [phone] ON SPEAKER PHONE, S/W PATIENT & HEATHER LOZANO NP. UPDATED ON PLAN OF CARE.
--- NOTE | 2022-09-21 22:25 | NUR ---
HEATHER LOZANO NP AT BEDSIDE
[2022-09-21] MEDS ORDERED: MAGNESIUM HYDROXIDE 30 ML UDC PO PRN (23:00)
[2022-09-21] MEDS ORDERED: ONDANSETRON HCL/PF 4 MG/2 ML VIAL IVP PRN (23:00)
[2022-09-21] MEDS ORDERED: MORPHINE SULFATE INJ 2 MG/ML DISP.SYRIN IV PRN (23:00)
[2022-09-21] MEDS ORDERED: DEXTROSE 50%-WATER 50 ML DISP.SYRIN IV PRN (23:00)
[2022-09-21] MEDS ORDERED: HYDROCODONE/APAP 5/325MG TABLET PO PRN (23:00)
[2022-09-21] MEDS ORDERED: MAG HYDROX/AL HYDROX/SIMETH 30 ML UDC PO PRN (23:00)
[2022-09-21] MEDS ORDERED: TEMAZEPAM 15 MG CAPSULE PO PRN (23:00)
[2022-09-21] MEDS ORDERED: ACETAMINOPHEN 325 MG TABLET PO PRN (23:00)
[2022-09-21] MEDS ORDERED: Z GUARD REMEDY 4 OZ OINT TP PRN (23:00)
--- NOTE | 2022-09-21 23:17 | NUR ---
STOOL COLLECTED AND SENT TO LAB
--- NOTE | 2022-09-21 23:25 | NUR ---
REPORT GIVEN TO NII MARINO
--- NOTE | 2022-09-21 23:55 | NUR ---
TELE ELECTRICAL WORKER INITIAL NOTES ADMIT PATIENT FROM ER VIA [facility] ACCOMPANIED BY ER NURSE AND EMT . DX OF CHF EXACERBATION. PT IS ALERT ORIENTED X4, KINYARWANDA SPEAKING . AWARE WHERE HE AT AND HOW TO USED THE CALL LIGHT SYSTEM . HE STATES THAT HE'S HERE BEFORE. DENIES ANY PAIN OR ANY DISCOMFORT. PER PATIENT HE DOESN'T FALL HE ONLY SITTING ON THE FLOOR BECAUSE HE FEEL WEEK. ASSESSMENT DONE AND RECORDED. HEPLOCK ON HIS RIGHT FOREARM GAUGE 20 PATENT AND INTACT. HE ALSO ON TELE SINUS RHYTHM WITH BBB AND PVC HEART RATE 90 PER TELE MONITOR. KEPT HIM WARM AND COMFORTABLE AT ALL TIMES. BED IN LOW AND LOCK IN POSITION WITH SIDE RAILS X2 UP . SNACKS ALSO SERVED PER PT REQUESTED AND ORDERED. WILL CONTINUE MONITORING. PLACE CALL LIGHT AT REACH.
[2022-09-22] VITALS: BP 130/72
[2022-09-22 04:00] VITALS: BP_SYST 124; BP_SYST 134; BP_DIAS 75
[2022-09-22 05:49] LABS: BASOPHILS % (AUTO) 0.4 % (0.0-2.0); EOSINOPHILS % (AUTO) 3.1 % (0.0-6.0); HEMATOCRIT 41 % (39-51); HEMOGLOBIN 13.5 g/dL (13.5-17.5); LYMPHOCYTES # (AUTO) 1.1 K/uL (0.8-4.8); LYMPHOCYTES % (AUTO) 8.5 % (20.0-44.0); MEAN CORPUSCULAR HGB CONC 33 g/dl (31.0-36.0); MEAN CORPUSCULAR VOLUME 88 fL (80-96); MONOCYTES # (AUTO) 1.3 K/uL (0.1-1.30); MONOCYTES % (AUTO) 10.3 % (2.0-12.0); NEUTROPHILS # (AUTO) 9.9 K/uL (1.8-8.9); NEUTROPHILS % (AUTO) 77.7 % (43.0-81.0); PLATELET COUNT (AUTO) 190 K/uL (150-450); RED BLOOD CELL COUNT(AUTO) 4.71 MIL/uL (4.5-6.0); WHITE BLOOD COUNT (AUTO) 12.8 K/uL (4.3-11.0)
[2022-09-22 06:07] LABS: CALCIUM, SERUM 9.2 mg/dL (8.5-10.1); CHLORIDE 98 mmol/L (98-107); CREATININE 2.3 mg/dL (0.6-1.3); GLUCOSE 128 mg/dL (74-106); MAGNESIUM 2.2 mg/dL (1.8-2.4); PHOSPHORUS 3.5 mg/dL (2.5-4.9); SODIUM SERUM 142 mmol/L (136-145); UREA NITROGEN, BLOOD 43 mg/dL (7-18)
[2022-09-22 06:33] LABS: CARBON DIOXIDE 42 mmol/L (21-32)
--- NOTE | 2022-09-22 07:42 | NUR ---
TELE BIRTH ATTENDANT CLOSING NOTES PT AWAKE AND WATCHING TV AT THIS TIME. DENIES ANY PAIN OR ANY DISCOMFORT. NOT IN ANY DISTRESS. NO BOWEL MOVEMENT AT THIS TIME. EDUCATE PT REGARDING FLUID RESTRICTION AND HE UNDERSTOOD WELL. TELE SR WITH BBB AND PVC'S . KEPT HIM WARM AND COMFORTABLE AT ALL TIMES. BED IN LOW AND LOCK IN POSITION WITH SIDE RAILS X2 UP . BED ALARM SET FOR SAFETY. GOT CRITICAL RESULT CO2 42H . ENDORSE TO AM NURSE FOR CONTINUITY OF CARE.
--- NOTE | 2022-09-22 07:55 | NUR ---
CRISIS CLINICIAN OPENING NOTES PT SLEEPING IN BED, EASILY AROUSED BY VERBAL STIMULI. ON OXYGEN AT 2LPM, TOLERATING WELL. NOT IN ANY DISTRESS. TELE SR HR 87WITH BBB AND PVC'S . KEPT HIM WARM AND COMFORTABLE AT ALL TIMES. BED IN LOW AND LOCK IN POSITION WITH SIDE RAILS X2 UP . BED ALARM SET FOR SAFETY. WILL CONTINUE TO MONITOR.
[2022-09-22 08:00] VITALS: BP 105/74
[2022-09-22] MEDS: BLOOD SUGAR DIAGNOSTIC 1 EACH STRIP IN SCH ×4 (08:03→21:54)
[2022-09-22] MEDS: PANTOPRAZOLE 40 MG TABLET.DR PO SCH (08:31)
[2022-09-22] MEDS: VANCOMYCIN HCL 125 MG/2.5 ML ORAL.SUSP PO SCH ×4 (08:38→21:03)
[2022-09-22] MEDS: APIXABAN 2.5 MG TABLET PO SCH ×2 (08:41→17:14)
[2022-09-22] MEDS ORDERED: FUROSEMIDE 40 MG/4 ML VIAL IV SCH (09:00)
[2022-09-22] MEDS ORDERED: POTASSIUM CHLORIDE 10 MEQ TABLET.SA PO ONE (09:30)
[2022-09-22] MEDS ORDERED: acetaZOLAMIDE SODIUM 500 MG/VIAL VIAL IV ONE (10:00)
[2022-09-22] MEDS ORDERED: IV NS 0.9% 1,000 ML IV PRN (10:30)
[2022-09-22] MEDS: INSULIN REGULAR, HUMAN 100 UNIT/ML 3 ML VIAL SQ PRN ×3 (11:58→21:55)
[2022-09-22 12:00] VITALS: BP 115/71
[2022-09-22] MEDS ORDERED: CEFTRIAXONE 1 G in IV D5W 50 ML IV SCH (14:00)
[2022-09-22] MEDS ORDERED: AZITHROMYCIN 500 MG in IV D5W 250 ML IV SCH (15:00)
[2022-09-22 15:59] LABS: CREATININE, URINE 28.4 MG/DL (30.0-125.0)
[2022-09-22 16:00] VITALS: BP 121/78
[2022-09-22 16:13] LABS: BILIRUBIN,URINE NEGATIVE (NEGATIVE); COLOR,URINE YELLOW (YELLOW); LEUKOCYTE ESTERASE ,URINE NEGATIVE (NEGATIVE); NITRITE, URINE NEGATIVE (NEGATIVE); PROTEIN,URINE NEGATIVE (NEGATIVE); UGLUCOSE TRACE mg/dL (NEGATIVE); UROBILINOGEN,URINE 0.2 EU/dL (0.2)
[2022-09-22 16:22] LABS: BACTERIA,URINE None seen /HPF (None Seen); SQUAMOUS EPITHELIAL CELL,UR 0-2 /HPF (None Seen); WBC,URINE 0-2 /HPF (0-3)
--- NOTE | 2022-09-22 17:54 | NUR ---
rn notes stool sample was collected, stored in fridge. Lab notified for garbage pick up man
--- NOTE | 2022-09-22 18:25 | NUR ---
GRAIN ELEVATOR OPERATOR NOTES PT AWAKE IN BED, A/OX4. ON OXYGEN AT 2LPM VIA NASAL CANNULA, TOLERATING WELL with NO S/S OF DISTRESS NOTED, BREATHING EVENLY AND UNLABORED MAINTAINED HEAD OF BED ELEVATED; DENIES ANY PAIN OR ANY DISCOMFORT. NO SIGNIFICANT CHANGES NOTED ALL THROUGHOUT THE SHIFT, DUE MEDS GIVEN KEPT HIM WARM AND COMFORTABLE AT ALL TIMES. BED IN LOW AND LOCK IN POSITION WITH SIDE RAILS X2 UP . BED ALARM SET FOR SAFETY. ENDORSE TO NIGHT NURSE FOR CONTINUITY OF CARE.
[2022-09-22 20:00] VITALS: BP 126/68
--- NOTE | 2022-09-22 21:15 | NUR ---
noc rn opening note received patient in bed, HOB elevated. a/ox4. no s/s of apparent distress in room air. denies pain at this time. reading sr with 1st degree, PAC's and PVC's. R.FA #20g on saline lock. safety in place-- bed in lowest, locked position, bed rails up x2, call light within reach. Will continue with the plan of care for patient
--- NOTE | 2022-09-22 22:00 | NUR ---
noc rn note blood sugar 127. no coverage needed.
--- NOTE | 2022-09-22 23:32 | NUR ---
noc rn note Patient saturating 98% in 1lpm of o2 via nc. Patient weaned of oxygen d/t high co2. will monitor.
[2022-09-23] VITALS: BP 123/71
[2022-09-23 04:00] VITALS: BP 122/73
--- NOTE | 2022-09-23 06:49 | NUR ---
denise sarmiento note Morphine drip titrated to 14 mls/hr. HR still 130 bpm. Addendum: 09/23/22 at 0655 by RENETTA ZENG RN disregard. wrong patient.
[2022-09-23] MEDS: BLOOD SUGAR DIAGNOSTIC 1 EACH STRIP IN SCH ×4 (06:50→22:00)
[2022-09-23] MEDS: INSULIN REGULAR, HUMAN 100 UNIT/ML 3 ML VIAL SQ PRN ×2 (06:51→12:26)
--- NOTE | 2022-09-23 06:52 | NUR ---
noc rn note blood sugar 116. no coverage needed.
--- NOTE | 2022-09-23 06:52 | NUR ---
denise rn closing note 306 Patient in bed with eyes closed, arousable to stimuli. parents at bedside the whole shift. not exhibiting apparent distress, RR 4 breaths per minute. Not exhibiting pain nor discomfort. Morphine drip running @14mls/hr. all needs attended. all orders carried out. patient Fever managed with ice packs. will endorse to morning shift rn for continuity of care. Addendum: 09/23/22 at 0655 by RENETTA ZENG RN disregard. wrong patient.
--- NOTE | 2022-09-23 06:58 | NUR ---
noc rn closing Patient in bed, a/ox4. no s/s of apparent distress on room air. denies pain. tele monitor reading sr with 88bpm, with time to time Afib. all needs attended. all scheduled meds admistered. safety kept in place the whole shift. will endorse to morning shift rn for continuity of patient care.
[2022-09-23 07:00] VITALS: BP 115/71
[2022-09-23 07:04] LABS: BASOPHILS # (AUTO) 0.1 K/uL (0.0-0.2); BASOPHILS % (AUTO) 0.6 % (0.0-2.0); EOSINOPHILS % (AUTO) 4.4 % (0.0-6.0); HEMATOCRIT 42 % (39-51); HEMOGLOBIN 13.3 g/dL (13.5-17.5); LYMPHOCYTES # (AUTO) 0.9 K/uL (0.8-4.8); LYMPHOCYTES % (AUTO) 9.3 % (20.0-44.0); MEAN CORPUSCULAR HGB CONC 32 g/dl (31.0-36.0); MEAN CORPUSCULAR VOLUME 90 fL (80-96); MONOCYTES # (AUTO) 1.1 K/uL (0.1-1.30); MONOCYTES % (AUTO) 10.8 % (2.0-12.0); NEUTROPHILS # (AUTO) 7.4 K/uL (1.8-8.9); NEUTROPHILS % (AUTO) 74.9 % (43.0-81.0); PLATELET COUNT (AUTO) 191 K/uL (150-450); RED BLOOD CELL COUNT(AUTO) 4.65 MIL/uL (4.5-6.0); WHITE BLOOD COUNT (AUTO) 9.9 K/uL (4.3-11.0)
--- NOTE | 2022-09-23 07:40 | NUR ---
rn opening note received patient awake in bed, HOB elevated. a/ox4. no s/s of apparent distress in room air. denies pain at this time. reading sr with 1st degree, PAC's and PVC's. R.FA #20g on saline lock. safety in place-- bed in lowest, locked position, bed rails up x2, call light within reach. Will continue with the plan of care for patient
[2022-09-23] MEDS: PANTOPRAZOLE 40 MG TABLET.DR PO SCH (07:58)
[2022-09-23 08:07] LABS: ALANINE AMINOTRANSFERASE 16 U/L (12-78); ALBUMIN 2.2 g/dL (3.4-5.0); ALKALINE PHOSPHATASE 88 U/L (46-116); ASPARTATE AMINOTRANSFERASE 17 U/L (15-37); BILIRUBIN,TOTAL 1.5 mg/dL (0.2-1.0); CALCIUM, SERUM 8.8 mg/dL (8.5-10.1); CARBON DIOXIDE 35 mmol/L (21-32); CHLORIDE 98 mmol/L (98-107); CREATININE 2.1 mg/dL (0.6-1.3); GLUCOSE 118 mg/dL (74-106); MAGNESIUM 2.1 mg/dL (1.8-2.4); PHOSPHORUS 3.8 mg/dL (2.5-4.9); SODIUM SERUM 140 mmol/L (136-145); TOTAL PROTEIN, SERUM 6.5 g/dL (6.4-8.2); UREA NITROGEN, BLOOD 36 mg/dL (7-18)
[2022-09-23 08:23] LABS: POTASSIUM 2.6 mmol/L (3.5-5.1)
[2022-09-23] MEDS: VANCOMYCIN HCL 125 MG/2.5 ML ORAL.SUSP PO SCH ×4 (08:43→21:28)
[2022-09-23] MEDS: POTASSIUM CHLORIDE 20 MEQ TAB.PRT.SR PO SCH ×5 (09:29→13:59)
[2022-09-23] MEDS: APIXABAN 2.5 MG TABLET PO SCH ×2 (09:45→17:05)
[2022-09-23 10:16] LABS: THYROID STIMULATING HORMONE 1.208 uIU/mL (0.358-3.74)
[2022-09-23 16:00] VITALS: BP 126/55
[2022-09-23] MEDS ORDERED: Potassium Chloride 40 MEQ in IV NS 0.9% 1,000 ML IV SCH (16:30)
--- NOTE | 2022-09-23 17:31 | NUR ---
RN NOTES PATIENT REFUSED ACCUCHECK MONITORING, JOSE LO NP MADE AWARE. WILL MONITOR.
--- NOTE | 2022-09-23 18:33 | NUR ---
rn closing note Patient in bed, a/ox4. no s/s of apparent distress, on room air. denies pain. tele monitor reading sr with 90bpm, with time to time Afib. all needs attended. all scheduled meds administered. wound care done. Safety precautions in place: bed in lowest, locked position, siderails upX2, and brakes on. Table and call light within reach. Will endorse to oncoming shift for JOHANNA.
--- NOTE | 2022-09-23 19:30 | NUR ---
noc rn opening note received patient in bed, HOB elevated, with eyes closed, easy to arouse. no s/s of apparent distress in room air. denies pain at this time. reading sr with 1st degree, PAC's and PVC's. R.FA #20g running ns @100mls/hr. safety in place-- bed in lowest, locked position, bed rails up x2, call light within reach. Will continue with the plan of care for patient
[2022-09-23 20:00] VITALS: BP 120/64
--- NOTE | 2022-09-23 22:06 | NUR ---
noc rn note- non-administered Patient refused blood sugar check. per patient and to quote: "It's because we've done it a 100th time this week." "and I'm not gonna take any insulin" "and they have been poking me on my fingers" "so no". Accucheck for 0 non-administered.
[2022-09-24] VITALS: BP 142/86
--- NOTE | 2022-09-24 00:18 | NUR ---
KATLIN THAPA NOTES PT CALLED AND ASKING IF HE HAVE ANOTHER ANTIBIOTIC FOR TONIGHT , I TOLD HIM THAT INFECTION DOCTOR JUST CHANGED THE ORDERED AND IT WILL START TOMORROW AT 11 AM. PT SEEMS CHANGED HIS MOOD SO I ASKED HIM IF POSSIBLE CAN I CHECK HIS BLOOD SUGAR AND HE AGREED , BLOOD SUGAR CAME OUT 150 , BUT PT REFUSED TO HAVE INSULIN AT THIS TIME. Addendum: 09/25/22 at 0029 by GISSEL DALE LVN WRONG DATE BUT RIGHT TIME
[2022-09-24 04:00] VITALS: BP 129/70
[2022-09-24] MEDS: BLOOD SUGAR DIAGNOSTIC 1 EACH STRIP IN SCH ×4 (06:49→22:00)
[2022-09-24] MEDS: INSULIN REGULAR, HUMAN 100 UNIT/ML 3 ML VIAL SQ PRN (06:50)
--- NOTE | 2022-09-24 07:00 | NUR ---
RN- OPENING NOTES PATIENT IS ASLEEP IN BED, BREATHING EVEN AND NON LABORED WITH NO S/S OF DISTRESS. PATIENT IS EASILY AROUSED, A/O X4. PATIENT IS ON ROOM AIR, TOLERATING WELL. PATIENT IS ON EXTERNAL DIRECTORY ASSISTANCE OPERATOR, READING SR WITH A HEART RATE OF 89 WITH PVC NOTED. IV ACCESS NOTED ON RIGHT FOREARM #20 G SALINE LOCK, RUNNING 1000ML BOLUS AT 100ML/HR. IV IS INTACT AND PATENT. ENCOURAGED PATIENT TO VERBALIZE ALL NEEDS TO STAFF. SAFETY MEASURES IN PLACE: BED LOCKED, IN LOWEST POSITION, SIDE RAILS UP X2, AND CALL LIGHT WITHIN REACH. WILL CONTINUE WITH PLAN OF CARE INDICATED.
--- NOTE | 2022-09-24 07:12 | NUR ---
noc rn closing all needs attended. all scheduled medications administered. no significant change with patient. will endorse to morning shift rn for continuity of care.
[2022-09-24 08:00] VITALS: BP 155/77
[2022-09-24] MEDS: PANTOPRAZOLE 40 MG TABLET.DR PO SCH (08:50)
[2022-09-24] MEDS: APIXABAN 2.5 MG TABLET PO SCH ×2 (08:52→16:48)
[2022-09-24] MEDS: VANCOMYCIN HCL 125 MG/2.5 ML ORAL.SUSP PO SCH ×3 (09:21→16:47)
[2022-09-24 09:48] LABS: ABG BASE EXCESS 5.5 mmol/L; ABG OXYGEN SATURATION 88.9 % (92.0-98.5); ABG PCO2 42.4 mmHg (35.0-45.0); ABG PH 7.465 (7.350-7.450); ABG PO2 56.1 mmHg (75.0-100.0); AaDO2 42.9 mmHg; COHb 1.8 % (0.5-1.5); MetHb 0.2 % (0.0-1.5); O2Hb 87.1 % (94.0-97.0); SITE, ABG Left Radial; VENT MODE, BG RA 21%
--- NOTE | 2022-09-24 10:16 | NUR ---
WOUND CARE CONSULT: PT REFUSED SKIN ASSESSMENT AT THIS TIME. ADMISSION PHOTOS INDICATE LOWER EXTREMITY WOUNDS AND RASH/REDNESS TO BUTTOCKS AND ABDOMINAL FOLDS, PRESENT ON ADMISSION. RECOMMENDATIONS MADE FOR SKIN PROTECTION. DISCUSSED WITH NURSING STAFF. MD IN AGREEMENT WITH PLAN OF CARE.
[2022-09-24] MEDS ORDERED: LEVOFLOXACIN 500 MG /D5W 100ML 100 ML IV SCH ×2 (10:30→11:00)
[2022-09-24 10:52] LABS: BASOPHILS # (AUTO) 0.1 K/uL (0.0-0.2); BASOPHILS % (AUTO) 0.7 % (0.0-2.0); EOSINOPHILS % (AUTO) 3.4 % (0.0-6.0); HEMATOCRIT 40 % (39-51); HEMOGLOBIN 12.9 g/dL (13.5-17.5); LYMPHOCYTES # (AUTO) 1.1 K/uL (0.8-4.8); LYMPHOCYTES % (AUTO) 13.6 % (20.0-44.0); MEAN CORPUSCULAR HGB CONC 32 g/dl (31.0-36.0); MEAN CORPUSCULAR VOLUME 88 fL (80-96); MONOCYTES # (AUTO) 1.2 K/uL (0.1-1.30); NEUTROPHILS # (AUTO) 5.6 K/uL (1.8-8.9); NEUTROPHILS % (AUTO) 67.3 % (43.0-81.0); PLATELET COUNT (AUTO) 170 K/uL (150-450); RED BLOOD CELL COUNT(AUTO) 4.56 MIL/uL (4.5-6.0); WHITE BLOOD COUNT (AUTO) 8.3 K/uL (4.3-11.0)
[2022-09-24 12:00] VITALS: BP 146/81
[2022-09-24 12:05] LABS: ALANINE AMINOTRANSFERASE 13 U/L (12-78); ALBUMIN 2.2 g/dL (3.4-5.0); ALKALINE PHOSPHATASE 88 U/L (46-116); ASPARTATE AMINOTRANSFERASE 14 U/L (15-37); BILIRUBIN,TOTAL 1.5 mg/dL (0.2-1.0); CALCIUM, SERUM 8.7 mg/dL (8.5-10.1); CARBON DIOXIDE 35 mmol/L (21-32); CHLORIDE 101 mmol/L (98-107); CREATININE 2.1 mg/dL (0.6-1.3); GLUCOSE 131 mg/dL (74-106); MAGNESIUM 2.2 mg/dL (1.8-2.4); PHOSPHORUS 2.8 mg/dL (2.5-4.9); POTASSIUM 3.2 mmol/L (3.5-5.1); SODIUM SERUM 139 mmol/L (136-145); TOTAL PROTEIN, SERUM 6.6 g/dL (6.4-8.2); UREA NITROGEN, BLOOD 24 mg/dL (7-18)
[2022-09-24] MEDS ORDERED: LOPERAMIDE HCL (2 MG CAP) 2 MG CAPSULE PO PRN (13:00)
[2022-09-24 16:00] VITALS: BP 114/65
[2022-09-24] MEDS ORDERED: POTASSIUM CHLORIDE 20 MEQ TAB.PRT.SR PO ONE (16:30)
[2022-09-24] MEDS: CLOTRIMAZOLE 1% 15 GM TUBE TP SCH (16:50)
[2022-09-24] MEDS: LACTOBACILLUS RHAMNOSUS GG 1 EACH CAP.SPRINK PO SCH (18:37)
--- NOTE | 2022-09-24 18:56 | NUR ---
RN CLOSING NOTE PATIENT IN BED AWAKE, A/O X4. CURRENTLY ON O2 @ 1 LPM VIA N/C, BREATHING EVEN AND NON LABORED WITH NO S/S OF ACUTE RESPIRATORY DISTRESS. CONTINUE ON EXTERNAL PLAYGROUND MONITOR, READING SR WITH A HEART RATE OF 91. WITH IV ACCESS ON RIGHT FOREARM #20 G, INTACT AND PATENT, SALINE LOCK. ALL DUE MEDS GIVEN. PATIENT REFUSED BLOOD SUGAR CHECK IN SPITE EXPLANATION OF IMPORTANCE. SAFETY MEASURES MAINTAINED: BED LOCKED, IN LOWEST POSITION, SIDE RAILS UP X2, AND CALL LIGHT WITHIN REACH. WILL ENDORSE TO NEXT SHIFT FOR CONTINUITY.
--- NOTE | 2022-09-24 19:26 | NUR ---
TELE BROADBAND ENGINEER INITIAL NOTES Received report from am nurse and seen patient in bed sitting while watching TV, He's alert oriented X4 , able to needs know. No signs of any acute distress noted. denies any pain or any discomfort. he also on tele sinus Rhythm heart rate 91 per monitor. Bed in low and lock in position with side rails x2 up . kept him warm and comfortable at all times. Place call light at reach. will continue monitoring.
[2022-09-24 20:00] VITALS: BP 122/81
--- NOTE | 2022-09-24 20:35 | NUR ---
TELE RECORDS CUSTODIAN NOTES Got Incentive Spirometer as ordered, educate the patient how to use it and what the purpose of doing it and patient understood well but patient refuse to demonstrate doing now and saying maybe later or jamey.
[2022-09-25 00:05] VITALS: BP 126/76
--- NOTE | 2022-09-25 00:18 | NUR ---
TELE SQUIRREL WORKER NOTES PT CALLED AND ASKING IF HE HAVE ANOTHER ANTIBIOTIC FOR TONIGHT , I TOLD HIM THAT INFECTION DOCTOR JUST CHANGED THE ORDERED AND IT WILL START TOMORROW AT 11 AM. PT SEEMS CHANGED HIS MOOD SO I ASKED HIM IF POSSIBLE CAN I CHECK HIS BLOOD SUGAR AND HE AGREED , BLOOD SUGAR CAME OUT 150 , BUT PT REFUSED TO HAVE INSULIN AT THIS TIME.
[2022-09-25 04:00] VITALS: BP 134/85
[2022-09-25] MEDS: BLOOD SUGAR DIAGNOSTIC 1 EACH STRIP IN SCH ×4 (06:16→22:00)
[2022-09-25] MEDS: INSULIN REGULAR, HUMAN 100 UNIT/ML 3 ML VIAL SQ PRN (06:17)
[2022-09-25 06:27] LABS: BASOPHILS # (AUTO) 0.1 K/uL (0.0-0.2); BASOPHILS % (AUTO) 0.8 % (0.0-2.0); HEMATOCRIT 38 % (39-51); HEMOGLOBIN 12.4 g/dL (13.5-17.5); LYMPHOCYTES # (AUTO) 0.9 K/uL (0.8-4.8); LYMPHOCYTES % (AUTO) 13.1 % (20.0-44.0); MEAN CORPUSCULAR HGB CONC 32 g/dl (31.0-36.0); MEAN CORPUSCULAR VOLUME 88 fL (80-96); MONOCYTES # (AUTO) 1.2 K/uL (0.1-1.30); MONOCYTES % (AUTO) 16.9 % (2.0-12.0); NEUTROPHILS # (AUTO) 4.6 K/uL (1.8-8.9); NEUTROPHILS % (AUTO) 65.2 % (43.0-81.0); PLATELET COUNT (AUTO) 161 K/uL (150-450); RED BLOOD CELL COUNT(AUTO) 4.33 MIL/uL (4.5-6.0)
[2022-09-25 06:33] LABS: CALCIUM, SERUM 8.6 mg/dL (8.5-10.1); CARBON DIOXIDE 33 mmol/L (21-32); CHLORIDE 102 mmol/L (98-107); CREATININE 1.9 mg/dL (0.6-1.3); GLUCOSE 111 mg/dL (74-106); MAGNESIUM 2.1 mg/dL (1.8-2.4); PHOSPHORUS 2.7 mg/dL (2.5-4.9); POTASSIUM 3.1 mmol/L (3.5-5.1); SODIUM SERUM 139 mmol/L (136-145); UREA NITROGEN, BLOOD 20 mg/dL (7-18)
[2022-09-25 07:00] VITALS: BP 125/85
--- NOTE | 2022-09-25 07:10 | NUR ---
TELE HEEL WASHER STRINGING MACHINE OPERATOR CLOSING NOTES PT SITTING IN HIS BED WATCHING TV AT THIS TIME. BLOOD SUGAR CHECKED DONE 102, NO COVERAGES GIVEN AT THIS TIME. NO SIGNS OF HYPO GLYCEMIA NOTED. PT STABLE THROUGHOUT THE NIGHT . BRYCE SINUS RHYTHM PER MONITOR.KEPT HIM WARM AND COMFORTABLE AT ALL TIMES. BED IN LOW AND LOCK IN POSITION WITH SIDE RAILS X2 UP . PLACE CALL LIGHT AT REACH. ENDORSE TO AM NURSE FOR CONTINUITY OF CARE.
--- NOTE | 2022-09-25 07:30 | NUR ---
ELIER TELE OPENING NOTES PATIENT RECEIVED AWAKE, A/Ox4. STABLE ON ROOM AIR. NO S/S OF SOB. PATIENT ON EXTERNAL MONITOR WITH THE CURRENT READING SR 89. PATIENT CONTINENT: USING URINAL. RAHUL Rodriguez#20, INTACT PATIENT AND FLUSHING WELL. FALL AND SAFETY PRECAUTION IN PLACE: BED AT THE LOWEST POSITION, LOCKED, SRx2,CALL LIGHT WITH REACH Addendum: 09/25/22 at 1046 by ORTEGA LAWS LVN ERROR / CORRECTION -OPENING NOTE EXTERNAL MONITOR READING A-FLUTTER 89 W/ PVC
--- NOTE | 2022-09-25 09:15 | NUR ---
WOUND CARE CONSULT: PT PRESENTS WITH RASH TO ABDOMINAL/GROIN FOLDS, PERINEUM AND BUTTOCKS WELL INCONTINENCE ASSOCIATED SKIN DAMAGE TO BUTTOCKS, PRESENT ON ADMISSION. PT IS INCONTINENT OF LOOSE STOOL AT TIMES. DISCUSSED SKIN PROTECTION AND SKIN CARE WITH NURSING STAFF AND PT. MD IN AGREEMENT WITH PLAN OF CARE.
[2022-09-25] MEDS: LACTOBACILLUS RHAMNOSUS GG 1 EACH CAP.SPRINK PO SCH ×2 (09:17→16:46)
[2022-09-25] MEDS: PANTOPRAZOLE 40 MG TABLET.DR PO SCH (09:17)
[2022-09-25] MEDS: APIXABAN 2.5 MG TABLET PO SCH ×2 (09:19→16:48)
[2022-09-25] MEDS: CLOTRIMAZOLE 1% 15 GM TUBE TP SCH ×2 (09:19→16:49)
[2022-09-25] MEDS ORDERED: LEVOFLOXACIN 250 MG /D5W 50 ML 250 MG in PREMIX 1 EA IV SCH ×2 (10:30→11:00)
[2022-09-25] MEDS ORDERED: POTASSIUM CHLORIDE 20 MEQ TAB.PRT.SR PO SCH (10:30)
--- NOTE | 2022-09-25 12:00 | NUR ---
PIT STEWARD NOTE - GLUCOSE CHECK PATIENT REFUSED GLUCOSE CHECK, EXPLAINED BENEFITS AND EDUCATED ON GLUCOSE MONITORING. PATIENT STILL REFUSED.
[2022-09-25 15:29] LABS: EOSINOPHILS % (MANUAL) 4 % (0-4); LYMPHOCYTES % (MANUAL) 9 % (16-48); MONOCYTES % (MANUAL) 11 % (0-11.0); NEUTROPHILS % (MANUAL) 76 (42-76)
[2022-09-25 16:00] VITALS: BP 146/77
--- NOTE | 2022-09-25 17:00 | NUR ---
ENVIRONMENTAL TECH NOTE - GLUCOSE CHECK PATIENT REFUSED GLUCOSE CHECK, EXPLAINED BENEFITS AND EDUCATED ON GLUCOSE MONITORING. PATIENT STILL REFUSED.
--- NOTE | 2022-09-25 17:37 | NUR ---
COMPOSITE ASSEMBLER NOTES- PRN MEDICATION PATIENT COMPLAINT OF LOOSE STOOL. ADMINISTERED PRN IMODIUM 2MG @[id number]
--- NOTE | 2022-09-25 18:35 | NUR ---
CISCO CONSULTANT TELE CLOSING NOTES PATIENT IN BED RESTING/ WATCHING TV. A/Ox4. STABLE ON ROOM AIR. NO S/S OF SOB, OR CARDIAC DISTRESS. NO COMPLAINTS OF PAIN AT THIS TIME.PATIENT ON EXTERNAL MONITOR WITH THE CURRENT READING A-FLUTTERING 92 WITH PVC. PATIENT CONTINENT: USING URINAL. MEDICATION ADMINISTERED ORDERED. IV ACCES R FORARM G#20, INTACT PATIENT AND FLUSHING WELL. FALL AND SAFETY PRECAUTION MAINTAINED : BED AT THE LOWEST POSITION, LOCKED, SRx2,CALL LIGHT WITH REACH
[2022-09-25] MEDS ORDERED: CEFEPIME 1 GM in IV D5W 50 ML IV SCH (19:30)
--- NOTE | 2022-09-25 19:44 | NUR ---
SEATER ASSEMBLER OPENING NOTES PATIENT AWAKE IN BED WATCHING TV, ALERT/ORIENTED X 4, PT ABLE TO MAKE NEEDS KNOWN. PATIENT STABLE ON RA, NO S/S OF DISTRESS OR SOB NOTED, BREATHING EVEN AND UNLABORED. PATIENT ON TELE MONITOR READING CONTROLLED A. FIB, HR: 97. IV ACCESS ON RIGHT FOREARM #20G INTACT AND SALINE LOCKED. PATIENT DENIES PAIN AT THIS TIME. SAFETY MEASURES IN PLACE: CALL LIGHT WITHIN REACH, SIDE RAILS UP X 2, BED LOCKED IN LOWEST POSITION, HOB ELEVATED, BED ALARM ON. WILL CONTINUE TO MONITOR PATIENT
[2022-09-25 20:00] VITALS: BP 142/94
[2022-09-25] MEDS: CEFEPIME 2 GM in IV D5W 100 ML IV SCH (20:55)
[2022-09-26] VITALS: BP 139/78
[2022-09-26 04:00] VITALS: BP 145/79
[2022-09-26 06:32] LABS: CALCIUM, SERUM 8.8 mg/dL (8.5-10.1); CARBON DIOXIDE 29 mmol/L (21-32); CHLORIDE 102 mmol/L (98-107); CREATININE 1.9 mg/dL (0.6-1.3); GLUCOSE 116 mg/dL (74-106); POTASSIUM 3.4 mmol/L (3.5-5.1); SODIUM SERUM 138 mmol/L (136-145); UREA NITROGEN, BLOOD 17 mg/dL (7-18)
[2022-09-26] MEDS: BLOOD SUGAR DIAGNOSTIC 1 EACH STRIP IN SCH ×3 (07:30→17:30)
--- NOTE | 2022-09-26 07:31 | NUR ---
OWNER SPA DIRECTOR CLOSING NOTE PATIENT AWAKE IN BED WATCHING TV, ALERT/ORIENTED X 4, PT ABLE TO MAKE NEEDS KNOWN. PATIENT STABLE ON RA, NO S/S OF DISTRESS OR SOB NOTED, BREATHING EVEN AND UNLABORED. PATIENT ON TELE MONITOR READING SINUS RHYTHM WITH PAC'S, HR: 90. IV ACCESS ON RIGHT FOREARM #20G INTACT AND SALINE LOCKED. MEDICATIONS GIVEN ORDERED, PT NEEDS MET THROUGHOUT SHIFT, PT REFUSED ACCU CHECK'S THIS SHIFT DESPITE EXPLANATION OF RISKS AND BENEFITS. SAFETY MEASURES IN PLACE: CALL LIGHT WITHIN REACH, SIDE RAILS UP X 2, BED LOCKED IN LOWEST POSITION, HOB ELEVATED, BED ALARM ON. ENDORSED TO DAYSHIFT RN FOR CONTINUITY OF CARE
[2022-09-26 08:00] VITALS: BP 140/86
[2022-09-26] MEDS: PANTOPRAZOLE 40 MG TABLET.DR PO SCH (08:00)
--- NOTE | 2022-09-26 08:26 | NUR ---
HEALTH SCIENCES DEPARTMENT CHAIR OPENING NOTE RECEIVED PT AWAKE AND RESTING IN BED. PT IS A/O X4, ABLE TO MAKE NEEDS KNOWN. PT ON ROOM AIR, TOLERATING WELL. NO SOB NOTED. NOT IN ANY SIGN OF RESPIRATORY DISTRESS. ON TELE COOKER CASING WITH CURRENT READING AFIB CONTROLLED, HR 92. NO C/O CARDIAC DISTRESS VOICED OUT AT THIS TIME. IV ACCESS ON RFA G#20 INTACT AND PATENT. SAFETY MEASURES IN PLACE: BED IN LOWEST AND LOCKED POSITION, SIDE RAILS UP X2, BED ALARM ON, AND CALL LIGHT WITHIN REACH. WILL CONTINUE PT WITH PLAN OF CARE.
[2022-09-26] MEDS: LACTOBACILLUS RHAMNOSUS GG 1 EACH CAP.SPRINK PO SCH ×2 (09:03→17:40)
[2022-09-26] MEDS: POTASSIUM CHLORIDE 20 MEQ TAB.PRT.SR PO SCH ×3 (09:03→11:42)
[2022-09-26] MEDS: CLOTRIMAZOLE 1% 15 GM TUBE TP SCH ×2 (09:04→17:41)
[2022-09-26] MEDS: APIXABAN 2.5 MG TABLET PO SCH ×2 (09:06→17:42)
[2022-09-26] MEDS: CEFEPIME 2 GM in IV D5W 100 ML IV SCH (09:08)
[2022-09-26] MEDS: INSULIN REGULAR, HUMAN 100 UNIT/ML 3 ML VIAL SQ PRN (12:19)
[2022-09-26 16:00] VITALS: BP 144/78
--- NOTE | 2022-09-26 19:32 | NUR ---
BENZENE STILL UTILITY OPERATOR CLOSING NOTE PT AWAKE AND RESTING IN BED. PT IS A/O X4, ABLE TO MAKE NEEDS KNOWN. PT ON ROOM AIR, TOLERATING WELL. NO SOB NOTED. NOT IN ANY SIGN OF RESPIRATORY DISTRESS. ON TELE DESK ASSISTANT WITH CURRENT READING AFIB CONTROLLED, HR 88. NO C/O CARDIAC DISTRESS VOICED OUT AT THIS TIME. IV ACCESS ON RFA G#20 AND VLADIMIR G#18 MIDLINE INTACT AND PATENT. ALL NEEDS ATTENDED. KEPT CLEAN AND COMFORTABLE AT ALL TIMES. PT WILL BE DISCHARGE TO [facility]. VITAL SIGNS TAKEN, STABLE, AND RECORDED. PT REFUSED BODY ASSESSMENTS AND PHOTOGRAPHS OF SKIN ISSUES. ALL BELONGINGS ACCOUNTED FOR. DISCHARGED INSTRUCTIONS AND HEALTH TEACHINGS EXPLAINED TO THE PT AND PT VERBALIZED UNDERSTANDING. REPORT GIVEN EARLIER TO NII GLEZ OF [facility] ALL NEEDS ATTENDED. KEPT CLEAN AND COMFORTABLE AT ALL TIMES. SAFETY MEASURES IN PLACE: BED IN LOWEST AND LOCKED POSITION, SIDE RAILS UP X2, BED ALARM ON, AND CALL LIGHT WITHIN REACH. ENDORSED TO TRAIN CONDUCTOR NURSE OF PT'S DISCHARGE.
--- NOTE | 2022-09-26 19:59 | NUR ---
LENS MOLDERSTOCK CAR DRIVER NOTE PATIENT PICKED UP FOR DISCHARGE BY 2 EMT'S, PT GOING TO [facility]. PATIENT ALERT/ORIENTED X 4, ABLE TO MAKE NEEDS KNOWN. PATIENT STABLE ON RA, NO S/S OF DISTRESS OR SOB NOTED, BREATHING EVEN AND UNLABORED. RIGHT FOREARM #20G IV ACCESS REMOVED. PATIENT GOING TO FACILITY WITH VLADIMIR MIDLINE FOR IV ABX. ALL BELONGINGS TAKEN WITH PATIENT. DISCHARGE PAPERWORK SIGNED BY PATIENT AND GIVEN TO EMT'S. TELE MONITOR AND ARM BAND REMOVED. PATIENT DISCHARGED IN STABLE CONDITION.
== END 2022-09-26 20:24 | DRG 291 ==
LOC: ER 20:27 → TELE 23:36
PROVIDERS: ADMIT Nurse Practitioner Acute Care
PROC: 05HB33Z Insertion of Infusion Device into Right Basilic Vein, Percutaneous Approach (ICD-10-PCS; principal; 2022-09-26)
DX: I13.0 Hypertensive heart and chronic kidney disease with heart failure and stage 1 through stage 4 chronic kidney disease, or unspecified chronic kidney disease (principal); I50.23 Acute on chronic systolic (congestive) heart failure; J15.9 Unspecified bacterial pneumonia; N17.0 Acute kidney failure with tubular necrosis; E44.0 Moderate protein-calorie malnutrition; I48.92 Unspecified atrial flutter; J44.0 Chronic obstructive pulmonary disease with (acute) lower respiratory infection; J98.11 Atelectasis; I48.0 Paroxysmal atrial fibrillation; R19.7 Diarrhea, unspecified; E78.5 Hyperlipidemia, unspecified; N18.9 Chronic kidney disease, unspecified; Z87.891 Personal history of nicotine dependence; N40.0 Benign prostatic hyperplasia without lower urinary tract symptoms; E66.9 Obesity, unspecified; Z68.30 Body mass index [BMI] 30.0-30.9, adult; D64.9 Anemia, unspecified; E11.22 Type 2 diabetes mellitus with diabetic chronic kidney disease; E78.00 Pure hypercholesterolemia, unspecified; E87.6 Hypokalemia; F32.A Depression, unspecified; I87.2 Venous insufficiency (chronic) (peripheral); K76.89 Other specified diseases of liver; N28.1 Cyst of kidney, acquired; R09.02 Hypoxemia
CPT/HCPCS: 36415; 36600; 71045-TC; 71250-TC; 76770-TC; 80048-TC; 80053-TC; 81001; 82570-TC; 82803-TC; 82962-TC; 83735-TC; 83880; 84100-TC; 84300-TC; 84439-TC; 84443-TC; 84484-TC; 85025-TC; 87040-TC; 87081-TC; 87086-TC; 94799-TC; 97112-TC; 97116-TC; 97530-TC; A4216; A6403; C9803; G0378; J0456; J0692; J0696; J1120; J1815; J1940; J1956; J7030; J7040; J7060

== ENCOUNTER 2023-07-20 20:54 | Emergency (ER) | payer MEDICARE, BC ==
[~2023-07-20] VITALS: Ht 195.6 cm; Wt 127.0 kg
[~2023-07-20 20:54] MED LIST changes: -LEVO500T90 PO; -PRED20TA PO
[2023-07-20 22:58] LABS: APPEARANCE,URINE TURBID (CLEAR); BILIRUBIN,URINE 1+ (NEGATIVE); BLOOD, URINE 3+ Ery/uL (NEGATIVE); COLOR,URINE RED (YELLOW); KETONES,URINE NEGATIVE (NEGATIVE); LEUKOCYTE ESTERASE ,URINE TRACE (NEGATIVE); NITRITE, URINE POSITIVE (NEGATIVE); PH,URINE 6.5 (5.0-8.0); PROTEIN,URINE 3+ mg/dl (NEGATIVE); UGLUCOSE TRACE mg/dL (NEGATIVE); UROBILINOGEN,URINE 0.2 EU/dL (0.2)
[2023-07-20 23:10] LABS: ADD URINE CULTURE YES; BACTERIA,URINE Few /HPF (None Seen); RBC,URINE TOO NUMEROUS TO COUN /HPF (0-2); SQUAMOUS EPITHELIAL CELL,UR Rare /HPF (None Seen)
[2023-07-20] MEDS ORDERED: CEPHALEXIN MONOHYDRATE 500 MG CAPSULE PO ONE (23:32)
[2023-07-20] MEDS: CEPHALEXIN MONOHYDRATE 500 MG CAPSULE PO ONE (23:33)
[2023-07-20] MEDS ORDERED: CEPH500C2 PO (23:51)
[2023-07-21 01:23] VITALS: BP 119/79; TEMP 98.4; O2SAT 96
== END 2023-07-21 01:39 ==
LOC: ER 21:09
DX: N39.0 Urinary tract infection, site not specified (principal); R31.9 Hematuria, unspecified; I10 Essential (primary) hypertension; I48.91 Unspecified atrial fibrillation; K21.9 Gastro-esophageal reflux disease without esophagitis; E11.9 Type 2 diabetes mellitus without complications; E78.00 Pure hypercholesterolemia, unspecified; Z79.899 Other long term (current) drug therapy
CPT/HCPCS: 81001; 87086-TC